=== PATIENT | male | born 1990 | race African-American/Black ===

== ENCOUNTER 2023-02-14 06:35 | Inpatient (IN) | payer MEDICAID ==
[2023-02-14] VITALS (60 sets, daily range): BP systolic 108–240; BP diastolic 46–188; PULSE 74–112; RESP 14–39; TEMP 97.7–98.7
[~2023-02-14] VITALS: Ht 175.3 cm; Wt 71.0 kg
[~2023-02-14 06:35] MED LIST: AMLO10TA80 PO; CLON0.2T PO; ISOS60TA76 MT; LEVO250T74 MT; METR-167 MT; MINO2.5T19 PO; SEVE800T8 PO
[2023-02-14] MEDS ORDERED: PROPOFOL 10MG/ML 100ML 100 ML IV ONE (07:00)
[2023-02-14] MEDS ORDERED: LABETALOL HCL VIAL 20 MG/4 ML VIAL IV ONE (07:00)
[2023-02-14] MEDS ORDERED: NITROGLYCERIN OINT 1GM/INCH UDPKT TD ONE (07:00)
[2023-02-14] MEDS ORDERED: FENTANYL CITRATE/PF 50MCG/ML 2ML VIAL IV ONE (07:00)
[2023-02-14] MEDS ORDERED: FUROSEMIDE 40MG/4ML VIAL IV ONE (07:00)
[2023-02-14] MEDS ORDERED: NITROGLYCERIN 0.4MG TABLET SL SL PRN (07:00)
[2023-02-14 07:06] LABS: BASOPHILS % 0.6 % (0.0-2.0); HEMATOCRIT. 33.9 % (42.0-52.0); LYMPHOCYTES % 41.1 % (20.0-50.0); MEAN CORPUSCULAR HEMOGLOBIN 29.6 pg (28.0-32.0); MEAN CORPUSCULAR HGB CONC 32.5 g/dL (31.0-37.0); MEAN CORPUSCULAR VOLUME 91.1 fL (80.0-94.0); MEAN PLATELET VOLUME 7.5 fl (7.4-10.4); MONOCYTES % 3.9 % (2.0-8.0); NEUTROPHILS % 50.4 % (40.0-76.0); PLATELET 247 x1000/uL (130-400); RED BLOOD CELL COUNT 3.73 mill/uL (4.7-6.1); RED CELL DISTRIBUTION WIDTH 14.2 % (11.6-14.6); WHITE BLOOD COUNT 7.8 x1000/uL (4.5-11.0)
[2023-02-14 07:15] LABS: CHLORIDE 108 mEq/L (98-107); INDEX HEMOLYSI 1 (1-3); INDEX ICTERIC 1 (1-4); INDEX LIPEMIC 1 (1-3); POTASSIUM 5.1 mEq/L (3.5-5.1); SODIUM 139 mEq/L (136-145)
[2023-02-14] MEDS ORDERED: LORAZEPAM 2MG/ML CPJ IV ONE (07:15)
[2023-02-14] MEDS ORDERED: FENTANYL CITRATE/PF 50MCG/ML 2ML VIAL IV NR ×2 (07:15→09:00)
[2023-02-14 07:18] LABS: PROTHROMBIN TIME 10.8 sec (9.6-11.0)
[2023-02-14 07:36] LABS: ALANINE AMINOTRANSFERASE 24 IU/L (13-61); ASPARTATE AMINOTRANSFERASE 25 IU/L (15-37); BILIRUBIN TOTAL 0.4 mg/dL (0.1-1.0); CALCIUM 7.6 mg/dL (8.5-10.1); CARBON DIOXIDE 24 mEq/L (21-32); GLUCOSE 147 mg/dL (70-105); NT PRO B-TYPE NATRIURETIC PEP 68128 pg/mL (5-125); PROTEIN TOTAL 7.6 g/dL (6.0-8.3); TROPONIN I HIGH SENSITIVITY 35 ng/L (<78); UREA NITROGEN BLOOD 42 mg/dL (7-21)
[2023-02-14] MEDS: LABETALOL 5MG/ML SYR 20 MG/4 ML SYRINGE IV SCH ×2 (07:36→07:40)
[2023-02-14 08:18] LABS: BG BASE EXCESS -5.2 mmol/L (-2.0-2.0); BG CARBOXYHEMOGLOBIN 0.6 % (0.5-1.5); BG DEOXYHEMOGLOBIN 9.6 % (0.0-5.0); BG HCO3 ACT 24.4 mmol/L (22.0-26.0); BG METHEMOGLOBIN 0.3 % (0.0-1.5); BG OXYGEN SATURATION 90.3 % (92.0-98.5); BG OXYHEMOGLOBIN 89.5 % (94.0-97.0); BG PCO2 71.1 mmHg (35.0-45.0); BG PH 7.154 (7.350-7.450); BG PO2 74.6 mmHg (75.0-100.0); BG SAMPLE SITE RIGHT RADIAL; BG TOTAL HEMOGLOBIN 11.2 g/dL (12.0-18.0); BG VENT MODE VENT - AC
[2023-02-14 08:26] LABS: CREATININE 11.1 mg/dL (0.6-1.3)
[2023-02-14] MEDS ORDERED: IPRATROPIUM BROMIDE (0.02%) 0.5MG/2.5ML NEB HHN SCH (08:45)
[2023-02-14] MEDS ORDERED: ALBUTEROL (0.083%) 2.5MG/3ML NEB HHN SCH (08:45)
[2023-02-14] MEDS ORDERED: LABETALOL 5MG/ML SYR 20 MG/4 ML SYRINGE IV NR (09:00)
[2023-02-14 09:05] LABS: BG BASE EXCESS -6.8 mmol/L (-2.0-2.0); BG DEOXYHEMOGLOBIN 3.5 % (0.0-5.0); BG HCO3 ACT 22.5 mmol/L (22.0-26.0); BG METHEMOGLOBIN 0.4 % (0.0-1.5); BG OXYGEN SATURATION 96.5 % (92.0-98.5); BG OXYHEMOGLOBIN 95.1 % (94.0-97.0); BG PCO2 63.4 mmHg (35.0-45.0); BG PH 7.167 (7.350-7.450); BG SAMPLE SITE LEFT RADIAL; BG TOTAL HEMOGLOBIN 11.9 g/dL (12.0-18.0); BG VENT MODE VENT - AC
[2023-02-14 09:26] LABS: TROPONIN I HIGH SENSITIVITY 50 ng/L (<78)
[2023-02-14] MEDS ORDERED: NITROGLYCERIN 50MG PREMIX 250 ML IV ONE (09:45)
[2023-02-14] MEDS ORDERED: NITROGLYCERIN 50MG PREMIX 250 ML IV PRN (10:00)
[2023-02-14] MEDS ORDERED: NITROGLYCERIN 50 MG in DEXT 5% WATER 240 ML IV PRN (10:00)
[2023-02-14] MEDS: PROPOFOL 10MG/ML 100ML 100 ML IV PRN ×4 (11:02→21:22)
[2023-02-14 11:37] LABS: BG BASE EXCESS -3.7 mmol/L (-2.0-2.0); BG CARBOXYHEMOGLOBIN 0.3 % (0.5-1.5); BG DEOXYHEMOGLOBIN 0.6 % (0.0-5.0); BG FRACTION INSPIRED OXYGEN 100; BG HCO3 ACT 21.3 mmol/L (22.0-26.0); BG METHEMOGLOBIN 0.1 % (0.0-1.5); BG OXYGEN SATURATION 99.4 % (92.0-98.5); BG PCO2 38.3 mmHg (35.0-45.0); BG PH 7.363 (7.350-7.450); BG SAMPLE SITE RIGHT RADIAL; BG TOTAL HEMOGLOBIN 10.4 g/dL (12.0-18.0); BG VENT MODE VENT - AC
[2023-02-14] MEDS ORDERED: ENOXAPARIN 30MG/0.3ML SYR SUBCUT SCH (12:00)
[2023-02-14] MEDS: NICARDIPINE 50 MG in SODIUM CHLORIDE 0.9% 230 ML IV PRN ×2 (14:41→19:21)
[2023-02-14 15:25] LABS: *AMPHETAMINES SCREEN URINE NEGATIVE (NEGATIVE); *BARBITURATES SCREEN URINE NEGATIVE (NEGATIVE); *BENZODIAZEPINES SCREEN URINE NEGATIVE (NEGATIVE); *COCAINE SCREEN URINE PRESUMTIVE POSITIVE (NEGATIVE); CANNABINOID URINE SCREEN PRESUMTIVE POSITIVE (NEGATIVE); ECSTASY MDMA SCREEN URINE NEGATIVE (NEGATIVE); METHADONE URINE SCREEN NEGATIVE (NEGATIVE); OPIATES URINE SCREEN NEGATIVE (NEGATIVE); PHENCYCLIDINE URINE SCREEN NEGATIVE (NEGATIVE)
[2023-02-14] MEDS: IPRATROPIUM/ALBUTEROL 0.5-3(2.5)MG/3ML NEB HHN SCH (16:39)
[2023-02-14] MEDS ORDERED: ACETAMINOPHEN 325MG TABLET PO PRN (17:00)
[2023-02-14] MEDS ORDERED: PIPERACILLIN/TAZ 3.375G PREMIX 50 ML IV SCH (17:00)
[2023-02-14] MEDS: SEVELAMER CARBONATE 800 MG TABLET PO SCH (17:00)
[2023-02-14] MEDS ORDERED: ONDANSETRON HCL 4MG/2ML INJ IV PRN (17:00)
[2023-02-14] MEDS ORDERED: ENOXAPARIN 40MG/0.4ML SYR SUBCUT SCH (17:00)
[2023-02-14] MEDS ORDERED: LABE200T9 PO (17:06)
[2023-02-14] MEDS ORDERED: NIFE-33 PO (17:06)
[2023-02-14] MEDS ORDERED: ATOR10TA69 PO (17:06)
[2023-02-14] MEDS ORDERED: FENTANYL 2500MCG/250ML PMX 250 ML IV PRN (20:00)
[2023-02-14] MEDS ORDERED: FENTANYL CITRATE 2,500 MCG in SODIUM CHLORIDE 0.9% 200 ML IV PRN (20:15)
[2023-02-14] MEDS ORDERED: FAMOTIDINE 20MG TABLET PO SCH (21:00)
[2023-02-14] MEDS: PIPERACILLIN/TAZOBACTAM 3.375 G in DEXTROSE 5% WATER 50 ML IV SCH (21:22)
[2023-02-14] MEDS: MINOXIDIL 2.5MG TABLET PO SCH (21:23)
[2023-02-14] MEDS: FAMOTIDINE 20MG/2ML VIAL IV SCH (21:24)
[2023-02-14] MEDS: CLONIDINE 0.2MG TABLET PO SCH (22:39)
[2023-02-15] VITALS (58 sets, daily range): BP systolic 93–173; BP diastolic 35–120; PULSE 77–112; RESP 24–38; TEMP 98–99.6
[2023-02-15] MEDS: IPRATROPIUM/ALBUTEROL 0.5-3(2.5)MG/3ML NEB HHN SCH ×3 (00:41→16:25)
[2023-02-15] MEDS: PROPOFOL 10MG/ML 100ML 100 ML IV PRN ×6 (01:36→22:01)
[2023-02-15] MEDS: NICARDIPINE 50 MG in SODIUM CHLORIDE 0.9% 230 ML IV PRN (01:36)
[2023-02-15 05:40] LABS: CALCIUM 7.2 mg/dL (8.5-10.1); POTASSIUM 3.9 mEq/L (3.5-5.1)
[2023-02-15 06:02] LABS: BASOPHILS % 0.4 % (0.0-2.0); EOSINOPHILS % 1.1 % (0.0-5.0); HEMATOCRIT. 27.7 % (42.0-52.0); LYMPHOCYTES % 12.6 % (20.0-50.0); MEAN CORPUSCULAR HGB CONC 32.3 g/dL (31.0-37.0); MEAN CORPUSCULAR VOLUME 89.7 fL (80.0-94.0); MEAN PLATELET VOLUME 8.3 fl (7.4-10.4); MONOCYTES % 9.6 % (2.0-8.0); NEUTROPHILS % 76.3 % (40.0-76.0); PLATELET 174 x1000/uL (130-400); RED BLOOD CELL COUNT 3.09 mill/uL (4.7-6.1); RED CELL DISTRIBUTION WIDTH 14.4 % (11.6-14.6); WHITE BLOOD COUNT 6.8 x1000/uL (4.5-11.0)
[2023-02-15 06:19] LABS: CREATININE 10.1 mg/dL (0.6-1.3)
[2023-02-15] MEDS: CLONIDINE 0.2MG TABLET PO SCH ×3 (06:43→22:00)
[2023-02-15] MEDS: SEVELAMER CARBONATE 800 MG TABLET PO SCH ×3 (07:00→18:20)
[2023-02-15 08:08] LABS: BG BASE EXCESS 1.7 mmol/L (-2.0-2.0); BG CARBOXYHEMOGLOBIN 0.2 % (0.5-1.5); BG DEOXYHEMOGLOBIN 7.9 % (0.0-5.0); BG HCO3 ACT 25.1 mmol/L (22.0-26.0); BG METHEMOGLOBIN 0.3 % (0.0-1.5); BG OXYGEN SATURATION 92.1 % (92.0-98.5); BG OXYHEMOGLOBIN 91.6 % (94.0-97.0); BG PCO2 34.3 mmHg (35.0-45.0); BG PH 7.482 (7.350-7.450); BG PO2 58.3 mmHg (75.0-100.0); BG SAMPLE SITE RIGHT RADIAL; BG TOTAL HEMOGLOBIN 8.5 g/dL (12.0-18.0); BG VENT MODE VENT - AC
[2023-02-15] MEDS: MINOXIDIL 2.5MG TABLET PO SCH ×2 (08:11→21:00)
[2023-02-15] MEDS: FAMOTIDINE 20MG/2ML VIAL IV SCH ×2 (08:12→21:47)
[2023-02-15] MEDS: ISOSORBIDE MONONITRATE 60MG TABLET SR 24HR PO SCH (08:13)
[2023-02-15] MEDS: AMLODIPINE 10MG TABLET PO SCH (08:13)
[2023-02-15] MEDS: PIPERACILLIN/TAZOBACTAM 3.375 G in DEXTROSE 5% WATER 50 ML IV SCH ×2 (08:16→21:48)
[2023-02-15] MEDS: ENOXAPARIN 40MG/0.4ML SYR SUBCUT SCH (08:17)
[2023-02-15] MEDS: METHYLPREDNISOLONE SOD SUCC 40MG VIAL IV SCH ×2 (10:57→18:21)
[2023-02-15 13:47] LABS: HEPATITIS B SURFACE ANTIGEN NEGATIVE
[2023-02-15 14:14] LABS: HEPATITIS C VIR.AB 0.11 INDEXVAL (0.00-0.80)
[2023-02-15 14:15] LABS: HEPATITIS B CORE AB IGM NEGATIVE
[2023-02-15 14:16] LABS: HEPATITIS A AB IGM NEGATIVE (NEGATIVE)
[2023-02-16] VITALS (108 sets, daily range): BP systolic 97–208; BP diastolic 49–117; PULSE 73–90; RESP 12–31; TEMP 97.9–99.5
[2023-02-16] MEDS: IPRATROPIUM/ALBUTEROL 0.5-3(2.5)MG/3ML NEB HHN SCH ×3 (01:37→16:16)
[2023-02-16] MEDS: METHYLPREDNISOLONE SOD SUCC 40MG VIAL IV SCH ×3 (02:50→17:54)
[2023-02-16 05:26] LABS: BASOPHILS % 0.1 % (0.0-2.0); EOSINOPHILS % 0.1 % (0.0-5.0); HEMOGLOBIN. 8.1 g/dL (14.0-18.0); LYMPHOCYTES % 8.3 % (20.0-50.0); MEAN CORPUSCULAR HGB CONC 33.8 g/dL (31.0-37.0); MEAN CORPUSCULAR VOLUME 88.7 fL (80.0-94.0); MEAN PLATELET VOLUME 8.1 fl (7.4-10.4); MONOCYTES % 4.6 % (2.0-8.0); NEUTROPHILS % 86.9 % (40.0-76.0); PLATELET 139 x1000/uL (130-400); RED CELL DISTRIBUTION WIDTH 14.7 % (11.6-14.6); WHITE BLOOD COUNT 4.2 x1000/uL (4.5-11.0)
[2023-02-16 05:35] LABS: POTASSIUM 5.3 mEq/L (3.5-5.1)
[2023-02-16 05:52] LABS: CALCIUM 7.7 mg/dL (8.5-10.1)
[2023-02-16 06:30] LABS: CREATININE 11.9 mg/dL (0.6-1.3)
[2023-02-16] MEDS: CLONIDINE 0.2MG TABLET PO SCH ×3 (06:32→21:33)
[2023-02-16 06:33] LABS: PHOSPHORUS 8.2 mg/dL (2.5-4.9)
[2023-02-16] MEDS: ENOXAPARIN 40MG/0.4ML SYR SUBCUT SCH (07:48)
[2023-02-16] MEDS: SEVELAMER CARBONATE 800 MG TABLET PO SCH ×3 (07:48→17:54)
[2023-02-16] MEDS: AMLODIPINE 10MG TABLET PO SCH (07:49)
[2023-02-16] MEDS: MINOXIDIL 2.5MG TABLET PO SCH ×2 (07:49→21:33)
[2023-02-16] MEDS: ISOSORBIDE MONONITRATE 60MG TABLET SR 24HR PO SCH (07:49)
[2023-02-16] MEDS: LABETALOL 5MG/ML SYR 20 MG/4 ML SYRINGE IV SCH (07:50)
[2023-02-16] MEDS: PROPOFOL 10MG/ML 100ML 100 ML IV PRN ×4 (07:51→21:34)
[2023-02-16] MEDS: PIPERACILLIN/TAZOBACTAM 3.375 G in DEXTROSE 5% WATER 50 ML IV SCH ×2 (08:32→21:33)
[2023-02-16] MEDS: FAMOTIDINE 20MG/2ML VIAL IV SCH ×2 (08:33→21:32)
[2023-02-16 09:32] LABS: BG BASE EXCESS -3.1 mmol/L (-2.0-2.0); BG CARBOXYHEMOGLOBIN 0.3 % (0.5-1.5); BG DEOXYHEMOGLOBIN 1.2 % (0.0-5.0); BG FRACTION INSPIRED OXYGEN 50; BG HCO3 ACT 21.5 mmol/L (22.0-26.0); BG METHEMOGLOBIN 0.7 % (0.0-1.5); BG OXYGEN SATURATION 98.8 % (92.0-98.5); BG OXYHEMOGLOBIN 97.8 % (94.0-97.0); BG PCO2 36.2 mmHg (35.0-45.0); BG PH 7.391 (7.350-7.450); BG PO2 209.6 mmHg (75.0-100.0); BG SAMPLE SITE RIGHT RADIAL; BG TOTAL HEMOGLOBIN 9.1 g/dL (12.0-18.0); BG VENT MODE VENT - AC
[2023-02-16] MEDS ORDERED: SODIUM POLYSTYRENE SULFONATE 15 G/60 ML BOT NG NR (10:30)
[2023-02-16] MEDS: NICARDIPINE 50 MG in SODIUM CHLORIDE 0.9% 230 ML IV PRN (14:58)
[2023-02-16 15:21] LABS: CLARITY URINE CLEAR (CLEAR); COLOR URINE YELLOW (YELLOW); GLUCOSE URINE NEGATIVE (NEGATIVE); KETONES URINE NEGATIVE (NEGATIVE); LEUKOCYTE ESTERASE URINE 1+ (NEGATIVE); NITRITE URINE NEGATIVE (NEGATIVE); OCCULT BLOOD URINE 2+ (NEGATIVE); PROTEIN URINE 2+ (NEGATIVE); SPECIFIC GRAVITY URINE 1.012 (1.005-1.030); UROBILINOGEN URINE 0.2 E.U./dL (0.2-1.0)
[2023-02-16 16:47] LABS: BACTERIA URINE TRACE; RBC URINE 15-25 /hpf (0-2); SQUAMOUS EPITHELIAL CELL URINE RARE /lpf (RARE/1+)
[2023-02-16 16:48] LABS: YEAST URINE NONE SEEN
[2023-02-17] VITALS (59 sets, daily range): BP systolic 113–182; BP diastolic 47–126; PULSE 70–88; RESP 10–26; TEMP 98–99.3; O2SAT 100
[2023-02-17] MEDS: IPRATROPIUM/ALBUTEROL 0.5-3(2.5)MG/3ML NEB HHN SCH ×2 (01:05→08:23)
[2023-02-17] MEDS: METHYLPREDNISOLONE SOD SUCC 40MG VIAL IV SCH ×2 (03:00→09:14)
[2023-02-17] MEDS: PROPOFOL 10MG/ML 100ML 100 ML IV PRN ×2 (03:30→07:52)
[2023-02-17 05:35] LABS: BASOPHILS % 0.1 % (0.0-2.0); HEMATOCRIT. 23.3 % (42.0-52.0); HEMOGLOBIN. 7.9 g/dL (14.0-18.0); LYMPHOCYTES % 12.5 % (20.0-50.0); MEAN CORPUSCULAR HEMOGLOBIN 29.8 pg (28.0-32.0); MEAN CORPUSCULAR VOLUME 87.6 fL (80.0-94.0); MEAN PLATELET VOLUME 7.8 fl (7.4-10.4); MONOCYTES % 9.9 % (2.0-8.0); NEUTROPHILS % 77.5 % (40.0-76.0); PLATELET 170 x1000/uL (130-400); RED BLOOD CELL COUNT 2.65 mill/uL (4.7-6.1); RED CELL DISTRIBUTION WIDTH 14.3 % (11.6-14.6); WHITE BLOOD COUNT 5.3 x1000/uL (4.5-11.0)
[2023-02-17 05:56] LABS: POTASSIUM 4.6 mEq/L (3.5-5.1)
[2023-02-17 06:15] LABS: CALCIUM 7.2 mg/dL (8.5-10.1)
[2023-02-17] MEDS: SEVELAMER CARBONATE 800 MG TABLET PO SCH (06:19)
[2023-02-17] MEDS: CLONIDINE 0.2MG TABLET PO SCH ×2 (06:22→14:40)
[2023-02-17 07:33] LABS: CREATININE 10.5 mg/dL (0.6-1.3)
[2023-02-17 07:35] LABS: PHOSPHORUS 8.2 mg/dL (2.5-4.9)
[2023-02-17] MEDS ORDERED: ENOXAPARIN 30MG/0.3ML SYR SUBCUT SCH (09:00)
[2023-02-17] MEDS: PIPERACILLIN/TAZOBACTAM 3.375 G in DEXTROSE 5% WATER 50 ML IV SCH (09:14)
[2023-02-17] MEDS: FAMOTIDINE 20MG/2ML VIAL IV SCH (09:14)
[2023-02-17] MEDS: AMLODIPINE 10MG TABLET PO SCH (09:15)
[2023-02-17] MEDS: MINOXIDIL 2.5MG TABLET PO SCH (09:15)
[2023-02-17] MEDS: ISOSORBIDE MONONITRATE 60MG TABLET SR 24HR PO SCH (09:15)
[2023-02-17] MEDS ORDERED: LANTHANUM CARBONATE 500MG CHEW TABLET PO SCH (12:00)
[2023-02-17 13:01] LABS: BG BASE EXCESS 0.6 mmol/L (-2.0-2.0); BG CARBOXYHEMOGLOBIN 0.3 % (0.5-1.5); BG DEOXYHEMOGLOBIN 20.1 % (0.0-5.0); BG FRACTION INSPIRED OXYGEN 40; BG HCO3 ACT 26.2 mmol/L (22.0-26.0); BG METHEMOGLOBIN 0.3 % (0.0-1.5); BG OXYGEN SATURATION 79.8 % (92.0-98.5); BG OXYHEMOGLOBIN 79.3 % (94.0-97.0); BG PCO2 47.2 mmHg (35.0-45.0); BG PH 7.363 (7.350-7.450); BG PO2 46.1 mmHg (75.0-100.0); BG SAMPLE SITE RIGHT RADIAL; BG TOTAL HEMOGLOBIN 8.9 g/dL (12.0-18.0); BG VENT MODE VENT - CPAP
== END 2023-02-17 20:02 | disposition home or self-care (01) | DRG 133 ==
LOC: ER 06:35 → MICUSO 09:02 → EDBEDREQ 09:04
PROVIDERS: ADMIT Internal Medicine; ATTEND Internal Medicine
PROC: 5A1945Z Respiratory Ventilation, 24-96 Consecutive Hours (ICD-10-PCS; principal; 2023-02-14)
PROC: 0BH17EZ Insertion of Endotracheal Airway into Trachea, Via Natural or Artificial Opening (ICD-10-PCS; 2023-02-14)
PROC: 5A1D70Z Performance of Urinary Filtration, Intermittent, Less than 6 Hours Per Day (ICD-10-PCS; 2023-02-14)
PROC: 5A1D70Z Performance of Urinary Filtration, Intermittent, Less than 6 Hours Per Day (ICD-10-PCS; 2023-02-15)
PROC: 5A1D70Z Performance of Urinary Filtration, Intermittent, Less than 6 Hours Per Day (ICD-10-PCS; 2023-02-17)
DX: J96.01 Acute respiratory failure with hypoxia (principal); G93.41 Metabolic encephalopathy; J81.0 Acute pulmonary edema; E83.51 Hypocalcemia; I16.1 Hypertensive emergency; J96.02 Acute respiratory failure with hypercapnia; N18.6 End stage renal disease; E87.5 Hyperkalemia; Z20.822 Contact with and (suspected) exposure to COVID-19; I13.11 Hypertensive heart and chronic kidney disease without heart failure, with stage 5 chronic kidney disease, or end stage renal disease; D64.9 Anemia, unspecified; E83.39 Other disorders of phosphorus metabolism; E87.70 Fluid overload, unspecified; F17.210 Nicotine dependence, cigarettes, uncomplicated; Z99.2 Dependence on renal dialysis
CPT/HCPCS: 36415; 36600; 71045; 80048; 80053; 80305; 81003; 82375; 82805; 83735; 83880; 84100; 84478; 84484; 85025; 86705; 86709; 86803; 87070; 87340; 87426; 90935; 93005; 93970; 94002; 94003; 94640; 99285; C9803; J1650; J1940; J2060; J2543; J2704; J2920; J3010; J3490; J7050; J7060